=== PATIENT | female | born 1960 | race Hispanic/Latino ===

== ENCOUNTER → 2020-06-03 | Outpatient (CLI) | payer OTHER ==
[~2020-06-03] MED LIST: COVID-19 VACC, MRNA(MODERNA)/PF 100 MCG/0.5 ML VIAL IM ONE
== END ==
LOC: EDBD 08:00 → VACCPMC 08:00
DX: Z23 Encounter for immunization (principal); Z20.822 Contact with and (suspected) exposure to COVID-19

== ENCOUNTER → 2020-07-08 | Outpatient (CLI) | payer OTHER | END | DRG 951 | LOC: VACCPMC 08:36 | DX: Z23 Encounter for immunization (principal); Z20.822 Contact with and (suspected) exposure to COVID-19 | CPT/HCPCS: 0012A; 91301 ==

== ENCOUNTER 2021-04-07 09:31 | Inpatient (IN) | payer BC ==
[~2021-04-07] VITALS: Ht 157.5 cm; Wt 100.7 kg
[2021-04-07] MEDS ORDERED: SODIUM CHLORIDE 0.9% 1000ML 1,000 ML IV STA (09:57)
[2021-04-07 10:13] LABS: BASOPHILS % 0.3 % (0.0-1.0); HEMATOCRIT 43.3 % (34.2-44.1); HEMOGLOBIN 13.6 g/dL (12.0-16.0); LYMPHOCYTES # (AUTO) 1.6 (1.0-3.2); LYMPHOCYTES % 16.8 % (18.0-39.1); MEAN CORPUSCULAR HGB CONC 31.4 g/dL (31-35); MEAN CORPUSCULAR VOLUME 92.3 fL (81-99); MONOCYTES # (AUTO) 0.6 (0.2-0.8); NEUTROPHILS # (AUTO) 7.4 (2.1-6.9); NEUTROPHILS % 76.4 % (38.7-80.0); PLATELET COUNT 254 x10e3/uL (140-360); RED BLOOD COUNT 4.69 x10e6/uL (3.6-5.1); RED CELL DISTRIBUTION WIDTH 13.2 % (11.7-14.4)
[2021-04-07 10:25] LABS: ALANINE AMINOTRANSFERASE 16 IU/L (0-55); ALBUMIN 3.7 g/dL (3.5-5.0); ALKALINE PHOSPHATASE 70 IU/L (40-150); AMYLASE 36 U/L (25-125); ANION GAP 16.1 mmol/L (8-16); BLOOD UREA NITROGEN 11 mg/dL (7-26); BUN/CREATININE RATIO 13 (6-25); CALCIUM 8.7 mg/dL (8.4-10.2); CARBON DIOXIDE 24 mmol/L (22-29); CHLORIDE 104 mmol/L (98-107); CREATINE KINASE 80 IU/L (29-168); CREATININE, SERUM 0.86 mg/dL (0.57-1.11); EST GLOMERULAR FILTRATION RATE 68 ML/MIN (60-); GLUCOSE 151 mg/dL (74-118); LIPASE 18 U/L (8-78); POTASSIUM 4.1 mmol/L (3.5-5.1); SODIUM 140 mmol/L (136-145)
[2021-04-07] MEDS ORDERED: Morphine 2mg Syringe 2 MG/ML SYR IV ONE (10:30)
[2021-04-07] MEDS ORDERED: ONDANSETRON HCL INJ 2MG/ML 2ML 2 MG/ML VIAL IV ONE (10:30)
[2021-04-07 10:38] LABS: CLARITY,URINE SL CLOUDY (CLEAR); COLOR,URINE YELLOW (YELLOW); KETONES,URINE NEGATIVE (NEGATIVE); LEUKOCYTE ESTERASE ,URINE TRACE (NEGATIVE); NITRITE,URINE NEGATIVE (NEGATIVE); PROTEIN,URINE DIPSTICK NEGATIVE (NEGATIVE)
[2021-04-07 10:39] LABS: URINE UROBILINOGEN 0.2 mg/dL (0.2 - 1)
[2021-04-07 10:41] LABS: BACTERIA,URINE MODERATE /HPF; EPITHELIAL CELLS,URINE MODERATE /LPF; WBC,URINE (MAN) >50 /HPF (0-5)
[2021-04-07] MEDS ORDERED: IOPAMIDOL 370 MG/ML 200 ML INFUS..BTL INJ ONE (10:46)
[2021-04-07] MEDS ORDERED: SODIUM CHLORIDE 0.9% 50ML 50 ML ONE (10:46)
[2021-04-07] MEDS ORDERED: CEFTRIAXONE 1 GM in SODIUM CHLORIDE 0.9% 50ML 50 ML IV ONE (11:45)
[2021-04-07] MEDS ORDERED: DEXTROSE 50% SYRINGE 50 ML IV PRN (12:15)
[2021-04-07] MEDS: SODIUM CHLORIDE 0.9% 1000ML 1,000 ML IV SCH ×2 (12:30→23:04)
[2021-04-07] MEDS ORDERED: Vancomycin IV 1 GM in SODIUM CHLORIDE 0.9% 250ML 250 ML IV ONE (13:00)
[2021-04-07] MEDS ORDERED: KEPPRA500 MG PO (14:06)
[2021-04-07] MEDS ORDERED: DIOVAN160 MG PO (14:15)
[2021-04-07] MEDS ORDERED: METFORMIN HCL500 MG PO (14:20)
[2021-04-07] MEDS ORDERED: CARBAMAZEPINE200 MG PO (14:21)
[2021-04-07 14:50] VITALS: BP 168/67
[2021-04-07] MEDS: Morphine 2mg Syringe 2 MG/ML SYR IV PRN (14:54)
[2021-04-07 16:08] VITALS: BP 128/64
[2021-04-07] MEDS: INSULIN LISPRO 100 UNIT/1 ML 3ML VIAL SQ SCH ×2 (16:30→21:00)
[2021-04-07] MEDS ORDERED: VALSARTAN 160 MG TAB PO SCH (17:00)
[2021-04-07] MEDS: LEVETIRACETAM 500 MG TAB PO SCH (17:10)
[2021-04-07 17:55] LABS: CREATINE KINASE 71 IU/L (29-168)
[2021-04-07 20:17] VITALS: BP 142/72
[2021-04-07] MEDS: ONDANSETRON HCL INJ 2MG/ML 2ML 2 MG/ML VIAL IV PRN (20:45)
[2021-04-07] MEDS: ACETAMINOPHEN 325 MG TAB PO PRN (21:00)
[2021-04-07] MEDS ORDERED: CEFTRIAXONE 1 GM in SODIUM CHLORIDE 0.9% 50ML 50 ML IV SCH (23:00)
[2021-04-07] MEDS: CEFEPIME 1 GM in SODIUM CHLORIDE 0.9% 50ML 50 ML IV SCH (23:04)
[2021-04-08] VITALS (8 sets, daily range): BP systolic 107–129; BP diastolic 58–69
[2021-04-08 01:24] LABS: BASOPHILS % 0.3 % (0.0-1.0); HEMATOCRIT 35.9 % (34.2-44.1); LYMPHOCYTES # (AUTO) 2.4 (1.0-3.2); LYMPHOCYTES % 23.7 % (18.0-39.1); MEAN CORPUSCULAR HEMOGLOBIN 29.5 pg (28-32); MEAN CORPUSCULAR HGB CONC 33.4 g/dL (31-35); MONOCYTES # (AUTO) 0.9 (0.2-0.8); MONOCYTES % 9.3 % (4.4-11.3); NEUTROPHILS # (AUTO) 6.6 (2.1-6.9); NEUTROPHILS % 66.4 % (38.7-80.0); PLATELET COUNT 221 x10e3/uL (140-360); RED BLOOD COUNT 4.07 x10e6/uL (3.6-5.1); RED CELL DISTRIBUTION WIDTH 13.2 % (11.7-14.4)
[2021-04-08 01:37] LABS: MEAN CORPUSCULAR VOLUME 88.2 fL (81-99)
[2021-04-08 01:42] LABS: CREATINE KINASE 56 IU/L (29-168)
[2021-04-08 01:59] LABS: ALBUMIN/GLOBULIN RATIO 0.9 (0.8-2.0); ANION GAP 14.7 mmol/L (8-16); CALCIUM 8.5 mg/dL (8.4-10.2); CREATININE, SERUM 0.76 mg/dL (0.57-1.11); POTASSIUM 3.7 mmol/L (3.5-5.1)
[2021-04-08] MEDS: Morphine 2mg Syringe 2 MG/ML SYR IV PRN ×4 (04:50→18:40)
[2021-04-08] MEDS: ONDANSETRON HCL INJ 2MG/ML 2ML 2 MG/ML VIAL IV PRN ×3 (04:50→13:00)
[2021-04-08] MEDS: CEFEPIME 1 GM in SODIUM CHLORIDE 0.9% 50ML 50 ML IV SCH (06:00)
[2021-04-08] MEDS: INSULIN LISPRO 100 UNIT/1 ML 3ML VIAL SQ SCH ×4 (07:30→20:43)
[2021-04-08] MEDS: LEVETIRACETAM 500 MG TAB PO SCH ×2 (09:00→16:26)
[2021-04-08] MEDS: VALSARTAN 160 MG TAB PO SCH (09:00)
[2021-04-08] MEDS: CARBAMAZEPINE 200 MG TAB PO SCH ×2 (09:00→16:26)
[2021-04-08] MEDS: SODIUM CHLORIDE 0.9% 1000ML 1,000 ML IV SCH ×2 (10:04→20:32)
[2021-04-08 10:39] LABS: CREATINE KINASE MB 0.3 ng/mL (0-5.0)
[2021-04-08] MEDS: MEROPENEM 1 GM in SODIUM CHLORIDE 0.9% 100 ML IV SCH ×2 (13:06→22:23)
[2021-04-08] MEDS ORDERED: PROMETHAZINE 12.5MG/ NACL 0.9% 12.5 MG/50 ML BAG IV PRN (14:15)
[2021-04-08] MEDS: MAGNESIUM/ALUMINUM/SIMETHICONE 30 ML UDC PO PRN (16:26)
[2021-04-08] MEDS: PANTOPRAZOLE SOD 40 MG TABEC PO SCH (16:26)
[2021-04-09] VITALS (8 sets, daily range): BP systolic 114–135; BP diastolic 60–69
[2021-04-09] MEDS: SODIUM CHLORIDE 0.9% 1000ML 1,000 ML IV SCH ×2 (05:20→14:15)
[2021-04-09] MEDS: MEROPENEM 1 GM in SODIUM CHLORIDE 0.9% 100 ML IV SCH ×3 (05:20→21:00)
[2021-04-09] MEDS: PANTOPRAZOLE SOD 40 MG TABEC PO SCH (06:29)
[2021-04-09] MEDS: Morphine 2mg Syringe 2 MG/ML SYR IV PRN (06:54)
[2021-04-09] MEDS: ONDANSETRON HCL INJ 2MG/ML 2ML 2 MG/ML VIAL IV PRN (06:54)
[2021-04-09] MEDS: INSULIN LISPRO 100 UNIT/1 ML 3ML VIAL SQ SCH ×4 (07:30→21:00)
[2021-04-09] MEDS: VALSARTAN 160 MG TAB PO SCH (09:36)
[2021-04-09] MEDS: LEVETIRACETAM 500 MG TAB PO SCH ×2 (09:36→16:58)
[2021-04-09] MEDS: CARBAMAZEPINE 200 MG TAB PO SCH ×2 (09:36→16:58)
[2021-04-09] MEDS: ACETAMINOPHEN 325 MG TAB PO PRN (15:00)
[2021-04-09] MEDS: MAGNESIUM/ALUMINUM/SIMETHICONE 30 ML UDC PO PRN (17:08)
[2021-04-10] VITALS: BP 127/70
[2021-04-10] MEDS: SODIUM CHLORIDE 0.9% 1000ML 1,000 ML IV SCH ×2 (03:15→09:13)
[2021-04-10 04:00] VITALS: BP 122/65
[2021-04-10] MEDS: MEROPENEM 1 GM in SODIUM CHLORIDE 0.9% 100 ML IV SCH ×2 (05:48→12:44)
[2021-04-10] MEDS: ACETAMINOPHEN 325 MG TAB PO PRN (07:20)
[2021-04-10] MEDS: INSULIN LISPRO 100 UNIT/1 ML 3ML VIAL SQ SCH ×2 (07:30→11:30)
[2021-04-10 08:15] VITALS: BP 135/76
[2021-04-10] MEDS: PANTOPRAZOLE SOD 40 MG TABEC PO SCH (08:30)
[2021-04-10 09:00] VITALS: BP 135/76
[2021-04-10] MEDS: VALSARTAN 160 MG TAB PO SCH (09:15)
[2021-04-10] MEDS: LEVETIRACETAM 500 MG TAB PO SCH (09:16)
[2021-04-10] MEDS: CARBAMAZEPINE 200 MG TAB PO SCH (09:17)
[2021-04-10] MEDS ORDERED: PROTONIX40 MG/ML PO (11:41)
[2021-04-10] MEDS ORDERED: PROMETHAZI25 MG/1 M2 PO (11:41)
[2021-04-10] MEDS ORDERED: MEROPENEM-1 GM/50 ML IV (12:04)
[2021-04-10] MEDS ORDERED: ONDANSETRON HCL 4 MG ORAL DISINTEGRATING TAB PO PRN (12:30)
[2021-04-10 12:42] VITALS: BP 123/71
== END 2021-04-10 13:45 | disposition home or self-care (01) | DRG 872 ==
LOC: ER 09:45 → ERHOLD 12:16 → MED/SURG3 13:04
PROVIDERS: ADMIT Internal Medicine; ATTEND Internal Medicine
PROC: 02HV33Z Insertion of Infusion Device into Superior Vena Cava, Percutaneous Approach (ICD-10-PCS; principal; 2021-04-08)
DX: A41.9 Sepsis, unspecified organism (principal); N39.0 Urinary tract infection, site not specified; Z16.12 Extended spectrum beta lactamase (ESBL) resistance; T82.898A Other specified complication of vascular prosthetic devices, implants and grafts, initial encounter; B96.20 Unspecified Escherichia coli [E. coli] as the cause of diseases classified elsewhere; E11.9 Type 2 diabetes mellitus without complications; E78.5 Hyperlipidemia, unspecified; G40.909 Epilepsy, unspecified, not intractable, without status epilepticus; K21.9 Gastro-esophageal reflux disease without esophagitis; N39.3 Stress incontinence (female) (male); Z87.440 Personal history of urinary (tract) infections; Z20.822 Contact with and (suspected) exposure to COVID-19
CPT/HCPCS: 36415; 36569; 71045; 74177; 80053; 81001; 82150; 82550; 82553; 82948; 83605; 83690; 83735; 84484; 85025; 87040; 87086; 87186; 93005; 99284; J0692; J0696; J2185; J2270; J2405; J2550; J3370; J7030; J7050; Q9967; U0002

== ENCOUNTER 2021-11-09 15:59 | Emergency (ER) | payer BC ==
[~2021-11-09] VITALS: Ht 157.5 cm; Wt 100.7 kg
[~2021-11-09 15:59] MED LIST changes: +CARBAMAZEPINE200 MG PO; -COVID-19 VACC, MRNA(MODERNA)/PF 100 MCG/0.5 ML VIAL IM ONE; +DIOVAN160 MG PO; +KEPPRA500 MG PO; +MEROPENEM-1 GM/50 ML IV; +METFORMIN HCL500 MG PO; +PROMETHAZI25 MG/1 M2 PO; +PROTONIX40 MG/ML PO
[2021-11-09] MEDS ORDERED: KETOROLAC TROMETHAMINE 30 MG/ML VIAL IM STA (17:09)
[2021-11-09] MEDS ORDERED: DEXAMETHASONE 4 MG TAB PO STA (17:09)
[2021-11-09] MEDS ORDERED: LIDOCAINE 4% PATCH TP STA (17:09)
[2021-11-09] MEDS ORDERED: ACETAMINOPHEN 325 MG TAB PO ONE (17:15)
[2021-11-09 17:24] LABS: CLARITY,URINE CLEAR (CLEAR); COLOR,URINE YELLOW (YELLOW)
[2021-11-09 17:25] LABS: KETONES,URINE NEGATIVE (NEGATIVE); LEUKOCYTE ESTERASE ,URINE NEGATIVE (NEGATIVE); NITRITE,URINE NEGATIVE (NEGATIVE); PROTEIN,URINE DIPSTICK NEGATIVE (NEGATIVE); URINE UROBILINOGEN 0.2 mg/dL (0.2 - 1)
[2021-11-09 17:31] LABS: BACTERIA,URINE FEW /HPF; EPITHELIAL CELLS,URINE FEW /LPF; RBC,URINE 0-5 /HPF (0-5); WBC,URINE (MAN) 0-5 /HPF (0-5)
[2021-11-09 17:37] LABS: BASOPHILS % 0.4 % (0.0-1.0); HEMATOCRIT 43.4 % (34.2-44.1); HEMOGLOBIN 13.9 g/dL (12.0-16.0); LYMPHOCYTES # (AUTO) 2.6 (1.0-3.2); LYMPHOCYTES % 35.2 % (18.0-39.1); MEAN CORPUSCULAR HEMOGLOBIN 29.4 pg (28-32); MEAN CORPUSCULAR VOLUME 91.8 fL (81-99); MONOCYTES # (AUTO) 0.4 (0.2-0.8); MONOCYTES % 5.2 % (4.4-11.3); NEUTROPHILS # (AUTO) 4.3 (2.1-6.9); NEUTROPHILS % 58.9 % (38.7-80.0); PLATELET COUNT 285 x10e3/uL (140-360); RED BLOOD COUNT 4.73 x10e6/uL (3.6-5.1); RED CELL DISTRIBUTION WIDTH 13.2 % (11.7-14.4)
[2021-11-09 17:54] LABS: ALBUMIN 3.7 g/dL (3.5-5.0); ANION GAP 16.1 mmol/L (8-16); CALCIUM 8.6 mg/dL (8.4-10.2); CREATININE, SERUM 0.74 mg/dL (0.57-1.11); POTASSIUM 4.1 mmol/L (3.5-5.1)
[2021-11-09] MEDS ORDERED: DEXAMETHASONE 4 MG TAB PO ONE (18:30)
[2021-11-09] MEDS ORDERED: NAPROXEN250 MG PO (18:33)
[2021-11-09] MEDS ORDERED: LIDOCAINE1 EAC1 EXT (18:33)
[2021-11-09] MEDS ORDERED: METHOCARBAMOL500 MG PO (18:34)
== END 2021-11-09 18:50 | disposition home or self-care (01) ==
LOC: ER 17:10
DX: M54.50 Low back pain, unspecified (principal); I10 Essential (primary) hypertension; E11.9 Type 2 diabetes mellitus without complications; K21.9 Gastro-esophageal reflux disease without esophagitis; G40.909 Epilepsy, unspecified, not intractable, without status epilepticus
CPT/HCPCS: 36415; 74176; 80053; 81001; 85025; 87086; 99283; J1885

== ENCOUNTER 2022-03-03 14:36 | Emergency (ER) | payer BC ==
[~2022-03-03] VITALS: Ht 165.1 cm; Wt 117.9 kg
[~2022-03-03 14:36] MED LIST changes: +LIDOCAINE1 EAC1 EXT; +METHOCARBAMOL500 MG PO; +NAPROXEN250 MG PO
[2022-03-03] MEDS ORDERED: KETOROLAC TROMETHAMINE 30 MG/ML VIAL IV STA (15:18)
[2022-03-03] MEDS ORDERED: SODIUM CHLORIDE 0.9% 1000ML 1,000 ML IV ONE ×2 (15:30→18:00)
[2022-03-03] MEDS ORDERED: ACETAMINOPHEN 325 MG TAB PO ONE (15:30)
[2022-03-03] MEDS ORDERED: ONDANSETRON HCL INJ 2MG/ML 2ML 2 MG/ML VIAL IV PRN (15:30)
[2022-03-03 15:38] LABS: BASOPHILS % 0.1 % (0.0-1.0); HEMATOCRIT 46.1 % (34.2-44.1); HEMOGLOBIN 14.6 g/dL (12.0-16.0); LYMPHOCYTES # (AUTO) 0.4 (1.0-3.2); LYMPHOCYTES % 4.8 % (18.0-39.1); MEAN CORPUSCULAR HEMOGLOBIN 29.1 pg (28-32); MEAN CORPUSCULAR HGB CONC 31.7 g/dL (31-35); MONOCYTES # (AUTO) 0.3 (0.2-0.8); MONOCYTES % 2.8 % (4.4-11.3); NEUTROPHILS # (AUTO) 8.5 (2.1-6.9); PLATELET COUNT 235 x10e3/uL (140-360); RED BLOOD COUNT 5.01 x10e6/uL (3.6-5.1); RED CELL DISTRIBUTION WIDTH 13.2 % (11.7-14.4)
[2022-03-03 16:16] LABS: ALBUMIN 3.9 g/dL (3.5-5.0); ALBUMIN/GLOBULIN RATIO 1.1 (0.8-2.0); ANION GAP 18.4 mmol/L (8-16); CLARITY,URINE SL CLOUDY (CLEAR); COLOR,URINE YELLOW (YELLOW); CREATININE, SERUM 0.78 mg/dL (0.57-1.11); KETONES,URINE NEGATIVE (NEGATIVE); LEUKOCYTE ESTERASE ,URINE NEGATIVE (NEGATIVE); NITRITE,URINE NEGATIVE (NEGATIVE); POTASSIUM 4.4 mmol/L (3.5-5.1); PROTEIN,URINE DIPSTICK NEGATIVE (NEGATIVE); URINE UROBILINOGEN 0.2 mg/dL (0.2 - 1)
[2022-03-03 16:23] LABS: BACTERIA,URINE FEW /HPF; EPITHELIAL CELLS,URINE MODERATE /LPF
[2022-03-03] MEDS ORDERED: METRONIDAZOLE 500MG/NS 100ML 100 ML IV ONE (18:15)
[2022-03-03] MEDS ORDERED: DICYCLOMINE HCL20 MG PO (19:41)
[2022-03-03] MEDS ORDERED: ONDANSETRON ODT4 MG PO (19:41)
[2022-03-03] MEDS ORDERED: METRONIDAZOLE500 MG PO (19:42)
[2022-03-03] MEDS ORDERED: ONDANSETRON HCL INJ 2MG/ML 2ML 2 MG/ML VIAL IV STA (20:00)
[2022-03-03 20:24] VITALS: BP 121/65
== END 2022-03-03 20:10 | disposition home or self-care (01) ==
LOC: ER 14:41
DX: R50.9 Fever, unspecified (principal); K52.9 Noninfective gastroenteritis and colitis, unspecified; R10.30 Lower abdominal pain, unspecified; R31.9 Hematuria, unspecified; I10 Essential (primary) hypertension; E11.9 Type 2 diabetes mellitus without complications; G40.909 Epilepsy, unspecified, not intractable, without status epilepticus; K21.9 Gastro-esophageal reflux disease without esophagitis
CPT/HCPCS: 36415; 74176; 80053; 81001; 83605; 85025; 87040; 87086; 99284; J0696; J1885; J2405; J7030

== ENCOUNTER 2022-10-26 07:23 | Emergency (ER) | payer BC ==
[~2022-10-26] VITALS: Ht 165.1 cm; Wt 117.9 kg
[~2022-10-26 07:23] MED LIST changes: +DICYCLOMINE HCL20 MG PO; +METRONIDAZOLE500 MG PO; +ONDANSETRON ODT4 MG PO
[2022-10-26] MEDS ORDERED: ONDANSETRON HCL INJ 2MG/ML 2ML 2 MG/ML VIAL IV STA (07:35)
[2022-10-26] MEDS ORDERED: SODIUM CHLORIDE 0.9% 1000ML 1,000 ML IV STA (07:35)
[2022-10-26 07:44] LABS: BASOPHILS % 0.7 % (0.0-1.0); HEMATOCRIT 42.1 % (34.2-44.1); HEMOGLOBIN 13.9 g/dL (12.0-16.0); LYMPHOCYTES # (AUTO) 2.6 (1.0-3.2); LYMPHOCYTES % 46.8 % (18.0-39.1); MEAN CORPUSCULAR HEMOGLOBIN 28.8 pg (28-32); MEAN CORPUSCULAR VOLUME 87.2 fL (81-99); MONOCYTES # (AUTO) 0.3 (0.2-0.8); MONOCYTES % 5.7 % (4.4-11.3); NEUTROPHILS # (AUTO) 2.5 (2.1-6.9); NEUTROPHILS % 46.6 % (38.7-80.0); PLATELET COUNT 236 x10e3/uL (140-360); RED BLOOD COUNT 4.83 x10e6/uL (3.6-5.1); RED CELL DISTRIBUTION WIDTH 13.2 % (11.7-14.4)
[2022-10-26] MEDS ORDERED: DONNATAL/LIDOCAINE/MAALOX 30 ML SUSP PO ONE (07:45)
[2022-10-26 08:05] LABS: ALANINE AMINOTRANSFERASE 27 IU/L (0-55); ALBUMIN 3.9 g/dL (3.5-5.0); ALBUMIN/GLOBULIN RATIO 1.3 (0.8-2.0); ALKALINE PHOSPHATASE 77 IU/L (40-150); ANION GAP 12.7 mmol/L (8-16); BLOOD UREA NITROGEN 10 mg/dL (7-26); BUN/CREATININE RATIO 13 (6-25); CALCIUM 8.8 mg/dL (8.4-10.2); CARBON DIOXIDE 23 mmol/L (22-29); CHLORIDE 104 mmol/L (98-107); GLUCOSE 105 mg/dL (74-118); LIPASE 22 U/L (8-78); POTASSIUM 3.7 mmol/L (3.5-5.1); SODIUM 136 mmol/L (136-145)
[2022-10-26] MEDS ORDERED: DICYCLOMINE HCL20 MG PO (08:36)
[2022-10-26] MEDS ORDERED: PANTOPRAZOLE SO40 MG PO (08:36)
[2022-10-26] MEDS ORDERED: ONDANSETRON ODT4 MG PO (08:36)
[2022-10-26] MEDS ORDERED: BELLADONNA ALK/PHENOBARBITAL 5 ML UDC PO ONE (08:45)
[2022-10-26] MEDS ORDERED: MAGNESIUM/ALUMINUM/SIMETHICONE 30 ML UDC PO ONE (08:45)
[2022-10-26 08:49] VITALS: O2SAT 96
[2022-10-26] MEDS ORDERED: DICYCLOMINE HCL 20 MG/2 ML VIAL IM ONE (09:15)
== END 2022-10-26 09:32 | disposition home or self-care (01) ==
LOC: ER 07:27
DX: R10.13 Epigastric pain (principal); R10.12 Left upper quadrant pain; R11.2 Nausea with vomiting, unspecified; K21.9 Gastro-esophageal reflux disease without esophagitis; I10 Essential (primary) hypertension; E11.9 Type 2 diabetes mellitus without complications; G40.909 Epilepsy, unspecified, not intractable, without status epilepticus
CPT/HCPCS: 36415; 71045; 80053; 83690; 84484; 85025; 93005; 99284; C9113; J0500; J2405; J7030

== ENCOUNTER 2023-04-29 18:17 | Emergency (ER) | payer BC ==
[~2023-04-29] VITALS: Ht 165.1 cm; Wt 117.9 kg
[~2023-04-29 18:17] MED LIST changes: +PANTOPRAZOLE SO40 MG PO
[2023-04-29] MEDS ORDERED: KETOROLAC TROMETHAMINE 60 MG/2 ML VIAL IM ONE (19:00)
[2023-04-29] MEDS ORDERED: ONDANSETRON HCL 4 MG ORAL DISINTEGRATING TAB PO ONE (19:00)
[2023-04-29 19:30] LABS: BILIRUBIN,URINE NEGATIVE (NEGATIVE); CLARITY,URINE CLEAR (CLEAR); COLOR,URINE YELLOW (YELLOW); GLUCOSE, URINE NEGATIVE (NEGATIVE); KETONES,URINE NEGATIVE (NEGATIVE); LEUKOCYTE ESTERASE ,URINE NEGATIVE (NEGATIVE); NITRITE,URINE NEGATIVE (NEGATIVE); PH,URINE 6 (5 - 7); PROTEIN,URINE DIPSTICK NEGATIVE (NEGATIVE); URINE UROBILINOGEN 0.2 mg/dL (0.2 - 1)
[2023-04-29 19:41] LABS: BACTERIA,URINE RARE /HPF; EPITHELIAL CELLS,URINE MODERATE /LPF; RBC,URINE 0-5 /HPF (0-5); WBC,URINE (MAN) 0-5 /HPF (0-5)
[2023-04-29 20:32] VITALS: BP 141/73; PULSE 66; RESP 16; TEMP 98.5; O2SAT 100
[2023-04-29] MEDS ORDERED: KETOROLAC TROME10 MG PO (20:34)
[2023-04-29] MEDS ORDERED: AUGMENTIN 500-1 EACH PO (20:34)
== END 2023-04-29 20:40 | disposition home or self-care (01) ==
LOC: ER 18:28
DX: R30.0 Dysuria (principal); M54.50 Low back pain, unspecified; R10.30 Lower abdominal pain, unspecified; I10 Essential (primary) hypertension; E11.9 Type 2 diabetes mellitus without complications; G40.909 Epilepsy, unspecified, not intractable, without status epilepticus; K21.9 Gastro-esophageal reflux disease without esophagitis
CPT/HCPCS: 74176; 81001; 87086; 99283; J1885; Q0162

== ENCOUNTER 2023-12-23 10:35 | Outpatient (RCR) | payer BC ==
[~2023-12-23 10:35] MED LIST changes: +ASPIRIN81 MG PO; +AUGMENTIN 500-1 EACH PO; +CEFUROXIME500 MG PO; +DEXILANT60 MG PO; +KETOROLAC TROME10 MG PO; +PHENERGAN SL; +SUCRALFATE1 GM PO
== END 2023-12-30 ==
LOC: PT 10:35
PROVIDERS: ATTEND Podiatrist Foot & Ankle Surgery
DX: M66.872 Spontaneous rupture of other tendons, left ankle and foot (principal); M72.2 Plantar fascial fibromatosis; M77.32 Calcaneal spur, left foot

== ENCOUNTER 2024-01-28 08:44 | Outpatient (RCR) | payer BC | END 2024-01-30 | LOC: PT 08:44 | PROVIDERS: ATTEND Podiatrist Foot & Ankle Surgery | DX: M79.672 Pain in left foot (principal) ==

== ENCOUNTER 2024-02-04 08:54 | Outpatient (RCR) | payer BC | END 2024-02-29 | LOC: PT 08:54 | PROVIDERS: ATTEND Podiatrist Foot & Ankle Surgery | DX: M79.672 Pain in left foot (principal) ==

== ENCOUNTER 2024-04-16 06:00 | Emergency (ER) | payer BC ==
[~2024-04-16] VITALS: Ht 157.5 cm; Wt 104.3 kg
[2024-04-16 06:06] VITALS: TEMP 97.7
[2024-04-16 06:26] LABS: CLARITY,URINE SL CLOUDY (CLEAR); COLOR,URINE YELLOW (YELLOW); GLUCOSE, URINE NEGATIVE (NEGATIVE); KETONES,URINE NEGATIVE (NEGATIVE); LEUKOCYTE ESTERASE ,URINE NEGATIVE (NEGATIVE); NITRITE,URINE NEGATIVE (NEGATIVE); PH,URINE 7 (5 - 7); PROTEIN,URINE DIPSTICK TRACE (NEGATIVE); URINE UROBILINOGEN 0.2 mg/dL (0.2 - 1)
[2024-04-16 06:27] LABS: BILIRUBIN,URINE NEGATIVE (NEGATIVE)
[2024-04-16 06:28] LABS: BACTERIA,URINE FEW /HPF; EPITHELIAL CELLS,URINE MODERATE /LPF
[2024-04-16] MEDS: SODIUM CHLORIDE 0.9% 1000ML 1,000 ML IV ONE (07:34)
[2024-04-16] MEDS: ONDANSETRON HCL INJ 2MG/ML 2ML 2 MG/ML VIAL IV STA (07:35)
[2024-04-16] MEDS: KETOROLAC TROMETHAMINE 30 MG/ML VIAL IV STA (07:35)
[2024-04-16 07:56] LABS: BASOPHILS % 0.4 % (0.0-1.0); HEMATOCRIT 43.1 % (34.2-44.1); HEMOGLOBIN 13.9 g/dL (12.0-16.0); LYMPHOCYTES # (AUTO) 2.2 (1.0-3.2); LYMPHOCYTES % 39.6 % (18.0-39.1); MEAN CORPUSCULAR HEMOGLOBIN 29.9 pg (28-32); MEAN CORPUSCULAR HGB CONC 32.3 g/dL (31-35); MEAN CORPUSCULAR VOLUME 92.7 fL (81-99); MONOCYTES # (AUTO) 0.4 (0.2-0.8); MONOCYTES % 6.7 % (4.4-11.3); NEUTROPHILS % 52.9 % (38.7-80.0); PLATELET COUNT 265 x10e3/uL (140-360); RED BLOOD COUNT 4.65 x10e6/uL (3.6-5.1); RED CELL DISTRIBUTION WIDTH 13.3 % (11.7-14.4); WHITE BLOOD COUNT 5.56 x10e3/uL (4.8-10.8)
[2024-04-16 08:00] VITALS: PULSE 70; RESP 16; O2SAT 98
[2024-04-16 08:11] LABS: ALBUMIN 3.9 g/dL (3.5-5.0); ALBUMIN/GLOBULIN RATIO 1.3 (0.8-2.0); ANION GAP 13.4 mmol/L (8-16); BILIRUBIN,TOTAL 0.3 mg/dL (0.2-1.2); CALCIUM 9.1 mg/dL (8.4-10.2); CREATININE, SERUM 0.71 mg/dL (0.57-1.11); POTASSIUM 4.4 mmol/L (3.5-5.1)
[2024-04-16] MEDS ORDERED: IOPAMIDOL 370 MG/ML 100 ML INFUS..BTL INJ ONE (08:32)
[2024-04-16] MEDS ORDERED: DICYCLOMINE HCL20 MG PO (09:48)
== END 2024-04-16 10:06 | disposition home or self-care (01) ==
LOC: ER 06:02
DX: R30.0 Dysuria (principal); R10.30 Lower abdominal pain, unspecified; I10 Essential (primary) hypertension; E11.9 Type 2 diabetes mellitus without complications; G40.909 Epilepsy, unspecified, not intractable, without status epilepticus; K21.9 Gastro-esophageal reflux disease without esophagitis
CPT/HCPCS: 36415; 74177; 80053; 81001; 83690; 85025; 87086; 99284; J1885; J2405; J7030; Q9967

== ENCOUNTER 2024-05-07 14:30 | Emergency (ER) | payer BC ==
[~2024-05-07] VITALS: Ht 157.5 cm; Wt 99.8 kg
[2024-05-07 14:40] VITALS: TEMP 98.4
[2024-05-07 16:05] LABS: BASOPHILS % 0.3 % (0.0-1.0); EOSINOPHILS # (AUTO) 0.2 (0.0-0.4); EOSINOPHILS % 2.5 % (0.0-6.0); HEMATOCRIT 37.3 % (34.2-44.1); LYMPHOCYTES # (AUTO) 1.3 (1.0-3.2); LYMPHOCYTES % 20.4 % (18.0-39.1); MEAN CORPUSCULAR HEMOGLOBIN 29.9 pg (28-32); MEAN CORPUSCULAR HGB CONC 32.2 g/dL (31-35); MONOCYTES # (AUTO) 0.7 (0.2-0.8); MONOCYTES % 11.4 % (4.4-11.3); NEUTROPHILS # (AUTO) 4.1 (2.1-6.9); NEUTROPHILS % 64.9 % (38.7-80.0); PLATELET COUNT 218 x10e3/uL (140-360); RED BLOOD COUNT 4.01 x10e6/uL (3.6-5.1); RED CELL DISTRIBUTION WIDTH 14.1 % (11.7-14.4); WHITE BLOOD COUNT 6.33 x10e3/uL (4.8-10.8)
[2024-05-07 16:17] LABS: ALBUMIN 2.9 g/dL (3.5-5.0); ALBUMIN/GLOBULIN RATIO 0.9 (0.8-2.0); ANION GAP 16.5 mmol/L (8-16); BILIRUBIN,TOTAL 0.3 mg/dL (0.2-1.2); CALCIUM 8.4 mg/dL (8.4-10.2); CREATININE, SERUM 0.89 mg/dL (0.57-1.11); POTASSIUM 4.5 mmol/L (3.5-5.1); TOTAL PROTEIN 6.1 g/dL (6.5-8.1)
[2024-05-07 17:48] VITALS: PULSE 80; RESP 16
[2024-05-07 17:54] LABS: BILIRUBIN,URINE NEGATIVE (NEGATIVE); CLARITY,URINE CLEAR (CLEAR); COLOR,URINE YELLOW (YELLOW); GLUCOSE, URINE NEGATIVE (NEGATIVE); KETONES,URINE NEGATIVE (NEGATIVE); LEUKOCYTE ESTERASE ,URINE NEGATIVE (NEGATIVE); NITRITE,URINE NEGATIVE (NEGATIVE); PH,URINE 6 (5 - 7); PROTEIN,URINE DIPSTICK 1+ (NEGATIVE); URINE UROBILINOGEN 0.2 mg/dL (0.2 - 1)
[2024-05-07 18:01] LABS: WBC,URINE (MAN) 21-50 /HPF (0-5)
[2024-05-07 18:02] LABS: BACTERIA,URINE MODERATE /HPF; EPITHELIAL CELLS,URINE FEW /LPF
[2024-05-07] MEDS ORDERED: CEFDINIR300 MG PO (18:08)
[2024-05-07 18:15] VITALS: BP 137/70; PULSE 86; RESP 16; TEMP 98.7; O2SAT 100
== END 2024-05-07 18:16 | disposition home or self-care (01) ==
LOC: MERGE 14:41 → ER 14:41
DX: R10.33 Periumbilical pain (principal); N39.0 Urinary tract infection, site not specified; I10 Essential (primary) hypertension; E11.9 Type 2 diabetes mellitus without complications; G40.909 Epilepsy, unspecified, not intractable, without status epilepticus
CPT/HCPCS: 36415; 74176; 80053; 81001; 84484; 85025; 87086; 99284